=== PATIENT | female | born 1945 | race Caucasian/White ===

== ENCOUNTER 2023-04-06 14:24 | Inpatient (IN) | payer MEDICARE, OTHER, SELFPAY ==
[2023-04-06] VITALS (8 sets, daily range): BP systolic 104–154; BP diastolic 56–98; BMI 21.5
--- NOTE | 2023-04-06 11:41 | ED.GENMED ---
History of Present Illness
General
Chief Complaint: Change in Mental Status
Time Seen by Provider: 04/06/23 11:36
Travel History
Have you had any contact with someone who has COVID-19?: No
Do you have any symptoms of coronavirus? Fever > 100 degrees, chills, cough, shortness of breath, sore throat, loss of taste or smell, muscle aches, or headache?: No
History of Present Illness
History of Present Illness:
77-year-old female with history of mild dementia presents the emergency department from home for evaluation of mental status change and weakness for the past 2 to 3 days. Has a history of UTI and daughter is concerned for this. Typically she is
appropriately conversant and more interactive. She has been coughing for the past week. History is otherwise limited due to the patient's mental status
Review of Systems
Review of Systems
Allergies reviewed?: Yes
All Other Systems: ROS reviewed and negative except as documented in HPI and ROS
Phy Exam
Physical Exam
Physical Exam:
GEN: Well appearing, NAD, WDWN
Eyes: PERRLA, EOMs intact, no scleral icterus
HENT: NCAT, oral mucosa moist
Lungs: CTAB, no wheezes, rales, rhonchi, normal chest wall excursion
Cardiac: RRR, no M/R/G, no peripheral edema. Radial pulses 2+ bilat
Abdomen: S, NT, ND, NABS, no masses or hepatosplenomegaly
Neuro: Alert, globally weak, nonsensical speech, follows commands, no lateralizing deficits
MSK: No gross deformity or ecchymosis. No edema. No digital clubbing
Skin: No rashes, petechiae. Normal color, no pallor or jaundice.
Psych: Calm, cooperative, proper hygiene
Course
Orders/Labs/Results
Orders:
Orders
04/06/23 11:40
Electrocardiogram (*1) Urgent
Reason for Study: Other
Other Reason for Exam: sepsis
EKG- Treatment ONCE
Straight cath- Treatment ONCE
04/06/23 11:41
CR Chest - 2 Views Urgent
Comment:
Reason For Exam: fever, hypoxia
04/06/23 11:51
Acetaminophen [Tylenol/Feverall] 650 mg RECTAL NOW STA
04/06/23 11:56
COVID-19 Antigen Urgent
Source: Nasal Swab
Complete Blood Count/With Diff Urgent
Comprehensive Metabolic Panel Urgent
Ferritin Routine
Comment: ADD ON
Iron Urgent
Comment: ADD ON
Lactic Acid Q4H
Comment: CANCEL 2nd LACTIC ACID IF 1st LACTIC ACID IS LESS THAN 2
Manual Differential Urgent
Prothrombin Time Urgent
Total Iron Binding Urgent
Comment: ADD ON
Vitamin B12 Routine
Comment: ADD ON
Blood Culture Q30M
GABBY Source: Blood/Venous
Specimen Description:
Influenza A+B Rapid Molecular Urgent
GABBY Source: Nasal Swab
Specimen Description:
04/06/23 11:59
Urinalysis Reflex To Culture Urgent
Date Specimen was Collected: 04/06/23
Time Specimen was Collected: 11:58
Urine Microscopic Reflex Cult Urgent
Urine Culture Urgent
GABBY Source: U
Specimen Description:
Date Specimen was Collected: 04/06/23
Time Specimen was Collected: 11:58
04/06/23 13:01
Azithromycin 500 mg/250 ml [Zithromax Infusion] 500 mg in 250 ml IV NOW
CefTRIAXone [Rocephin] 1,000 mg IV NOW STA
04/06/23 13:41
Blood Culture Q30M
GABBY Source: Blood/Venous
Specimen Description:
04/06/23 13:49
Admit/Transfer Patient As Directed
Co-Sign Provider:
Level of Care: Inpatient admission
Assign to:: Medical/Surgical
Physician / Group: cynthia bueno
Diagnosis: hypoxic resp insuff 2/2 RLL pna
Reason for Hospitalization: hypoxic resp insuff 2/2 RLL pna
Expected length of stay greater than two midnights?: Yes
ELOS- Estimated Length of Stay in days: 3
I certify the patient meets the requirements for IP care: Yes
04/06/23 13:50
Code Status As Directed
Resuscitation Status: Do not resuscitate
Reached after discussion with pt or family/Healthcare POA: Yes
Based on pt advanced directive or healthcare POA form: Yes
Decision communicated with: per daughter allyson poa
DNR Bracelet Application ONCE
04/06/23 14:02
Add On- LAB Routine
Tests Added?: iron,tibc,ferritin,b12
04/06/23 15:45
Lactic Acid Q4H
Comment: CANCEL 2nd LACTIC ACID IF 1st LACTIC ACID IS LESS THAN 2
Abnormal Lab Results
04/06/23 04/06/23
11:56 11:59
WBC 13.0 H 10^3/uL
(4.8-10.8)
RBC 3.27 L 10^6/uL
(4.20-5.40)
Hgb 10.7 L g/dL
(12.0-16.0)
Hct 32.1 L %
(37.0-47.0)
MCH 32.7 H pg
(27.0-31.0)
Abs Immat Gran (auto) 0.1 H 10^3/uL
(0-0.05)
Absolute Neuts (auto) 11.9 H 10^3/uL
(1.4-6.5)
Absolute Lymphs (auto) 0.4 L 10^3/uL
(1.2-3.4)
Absolute Monos (auto) 0.7 H 10^3/uL
(0.1-0.6)
Immature Gran % 0.7 H %
(0-0.5)
Neutrophils % 90.8 H %
(42.2-75.2)
Lymphocytes % 2.9 L %
(20.5-51.1)
Abs Neuts (Manual) 11.4 H 10^3/uL
(1.4-6.5)
Band Neutrophils 16 H %
(0-3)
Lymphocytes (Manual) 5 L %
(20-51)
PT 16.9 H Sec
(11.4-14.6)
Sodium 134 L mmol/L
(135-145)
BUN 41 H mg/dl
(7-17)
Glucose 101 H mg/dl
(70-99)
Iron 27 L ug/dl
(37-170)
TIBC 214 L ug/dl
(265-497)
% Saturation 12 L %
(20-50)
Urine Ketones Trace A
(Negative)
Ur Occult Blood Reflex 1+ A
(Negative)
Urine Bilirubin 1+ A
(Negative)
Leukocyte Esterase Rfl Trace A
(Negative)
Urine Bacteria (Reflex) Many A
(Negative)
Urine Albumin (Reflex) 1+ A
(Neg - Trace)
04/06/23 11:56
04/06/23 11:56
Vital Signs
Initial and Last Documented VS:
Initial Vital Signs
Temp Pulse Resp Pulse Ox
99.3 F 72 20 89
04/06/23 11:23 04/06/23 11:23 04/06/23 11:23 04/06/23 11:23
Last Documented Vital Signs
Temp Pulse Resp Pulse Ox
99.9 F 72 20 89
04/06/23 13:49 04/06/23 11:23 04/06/23 11:23 04/06/23 11:23
MDM/Problems Addressed
MDM/Problems Addressed:
Chest x-ray independently interpreted by me shows right lower lobe pneumonia. This is likely patient source of sepsis. Lactic acid is normal and she is hemodynamically stable. She is noted to be mildly hypoxic on room air requiring supplemental
oxygen. Given this coupled with his advanced age and dementia I recommend we admit her for IV antibiotics at this juncture
*Critical Care Note
Total Time (30-74mins, 75-104mins- exclusive of procedures): Not Applicable
ED Attending Note
-
Portions of this chart may have been created with voice recognition software.� Occasional wrong word or��sound alike� substitutions may have occurred due to the inherent limitations of voice recognition software.
Discharge Plan
Departure
Patient Disposition: Admit
Date of Disposition: 04/06/23
Time of Disposition: 13:06
Admit to: Med/Surg
Presentation/result/management discussed w/ accepting MD/DO: Hospitalist
Discharge Problem:
Right lower lobe pneumonia, Acute respiratory insufficiency
Interventions
Interventions:
*Risk Screen - Suicide Last Done: 04/06/23 11:23
*General Assessment Last Done: 04/06/23 11:23
*Neglect/Abuse Screening Last Done: 04/06/23 11:23
*ED COVID-19 Vaccine History Last Done: 04/06/23 13:00
ED- Pulmonary Assessment Last Done: 04/06/23 13:00
ED- Neurological Assessment Last Done: 04/06/23 13:00
[2023-04-06] MEDS: TYLENOL/FEVERALL 650 MG RECTAL (11:57)
[2023-04-06 12:24] LABS: % Basophils 0.2 % (0-2); % Immature Granulocytes 0.7 % (0-0.5); % Lymphocytes 2.9 % (20.5-51.1); % Monocytes 5.4 % (1.7-9.3); % Neutrophils 90.8 % (42.2-75.2); Absolute Immature Granulocytes 0.1 10^3/uL (0-0.05); Absolute Lymphocytes 0.4 10^3/uL (1.2-3.4); Absolute Monocytes 0.7 10^3/uL (0.1-0.6); Absolute Neutrophils 11.9 10^3/uL (1.4-6.5); Hematocrit 32.1 % (37.0-47.0); Hemoglobin 10.7 g/dL (12.0-16.0); Mean Corp Hgb Conc. 33.3 g/dL (33.0-37.0); Mean Corpuscular Hgb 32.7 pg (27.0-31.0); Mean Corpuscular Volume 98.2 fL (81.0-99.0); Mean Platelet Volume 10.3 fL (7.4-10.4); Nucleated Red Blood Cells % 0 %; Platelet Count 213 10^3/uL (130-400); Red Blood Cell Count 3.27 10^6/uL (4.20-5.40); Red Cell Dist. Width 12.4 % (11.5-14.5)
[2023-04-06 12:36] LABS: ALT (SGPT) 21 U/L (0-35); AST (SGOT) 27 U/L (14-36); Albumin 3.8 g/dl (3.5-5.0); Alkaline Phosphatase 57 U/L (38-126); Blood Urea Nitrogen 41 mg/dl (7-17); Calcium 9.5 mg/dl (8.4-10.2); Carbon Dioxide 29 mmol/L (22-30); Chloride 102 mmol/L (98-107); Estimated Creatinine Clearance 43 ml/min; Glucose 101 mg/dl (70-99); Potassium 3.9 mmol/L (3.5-5.1); Sodium 134 mmol/L (135-145); Total Protein 6.4 g/dl (6.3-8.2); eGFR > 60.00
[2023-04-06 12:39] LABS: Lactic Acid 1.2 mmol/L (0.7-2.0)
[2023-04-06 12:48] LABS: COVID-19 Antigen Negative (Negative)
[2023-04-06 12:58] LABS: INR 1.37; PT 16.9 Sec (11.4-14.6)
[2023-04-06 13:03] LABS: Urine Albumin 1+ (Neg - Trace); Urine Bilirubin 1+ (Negative); Urine Character Clear (Clear); Urine Color Amber; Urine Glucose Negative (Negative); Urine Ketone Trace (Negative); Urine Leukocyte Trace (Negative); Urine Nitrite Negative (Negative); Urine Occult Blood 1+ (Negative); Urine Specific Gravity 1.025 (<1.030); Urine Urobilinogen 1+ (Neg - 1+)
--- NOTE | 2023-04-06 13:17 | HPS.HSE ---
Family Physician
<DAMION Wilkins - Last Filed: 04/06/23 14:18>
-
Family Physician: PHYSICIAN PRIVATE
Chief Complaint
<DAMION Wilkins - Last Filed: 04/06/23 14:18>
-
Lethargy, fall, cough
History of Present Illness
77-year-old female, from home where she lives with her daughter Yue who states yesterday her mother was very lethargic, barely ate and was sleeping all day. She did notice a nonproductive cough and some chills. She also states her mother did fall
but did not sustain any injury. The patient is oriented to name and daughter's name. She denies current headache, chest pain, abdominal pain, nausea, vomiting, diarrhea, urinary symptoms.
She has PMH Lewy body dementia, HTN, HLD, asthma, anxiety, left-sided breast cancer with left lumpectomy/radiation 2013
Medical History
<DAMION Wilkins - Last Filed: 04/06/23 14:18>
Past Medical History
Past Medical History: Reports Other
Additional Past Medical History:
Lewy body dementia
HTN
HLD
asthma
anxiety
left-sided breast cancer with left lumpectomy/radiation 2013
Past Surgical History: Reports Other
Additional Past Surgical History:
left-sided breast cancer with left lumpectomy/radiation 2013
Arthroscopy right knee
Hysterectomy
Social History
Tobacco: Former Smoker (Quit approximately 5 years ago according to daughter did vape for 3 years)
Alcohol: None
Drug: None
Personal: (May 2022)
Living: With Family (Daughter Yue HEBERT)
Employment: Retired
Family History
Family History: Other (Mother history of dementia, father history CHF, sister history of Alzheimer's )
Allergies / Home Medications
Allergies reflects when Allergies were last updated in [facility].
Home Medications with original date entered in [facility]
Allergy/Medication List:
Allergies
Allergy/AdvReac Type Severity Reaction Status Date / Time
No Known Allergies Allergy Verified 04/06/23 11:55
Home Medications
amlodipine 2.5 mg tablet 2.5 mg PO QPM 04/06/23
calcium carbonate 500 mg calcium (1,250 mg) tablet 500 mg PO BID 04/06/23
cyanocobalamin (vitamin B-12) 1,000 mcg tablet 1,000 mcg PO DAILY 04/06/23
duloxetine 30 mg capsule,delayed release (Cymbalta) 120 mg PO DAILY 04/06/23
omeprazole 20 mg tablet,delayed release 20 mg PO BID 04/06/23
potassium chloride 20 mEq tablet,extended release 20 meq PO DAILY 04/06/23
pravastatin 40 mg tablet 40 mg PO DAILY 04/06/23
rivastigmine tartrate 3 mg capsule 3 mg PO QPM 04/06/23
rivastigmine tartrate 4.5 mg capsule 4.5 mg PO DAILY 04/06/23
trazodone 50 mg tablet 50 mg PO HS 04/06/23
valsartan 160 mg tablet 160 mg PO DAILY 04/06/23
Review of Systems
<DAMION Wilkins - Last Filed: 04/06/23 14:18>
-
History Source: Patient and Family (Daughter Yue)
A 12 point ROS was completed and negative except as noted: Yes
Constitutional: Reports Fatigue and Chills
EENT: Denies Sore Throat or Runny Nose
Respiratory: Reports Cough (Nonproductive) and Trouble Breathing
Cardiac: Denies Chest Pain, Diaphoresis, Palpitations or Syncope
Abdomen/GI: Denies Abdominal Pain, Nausea, Vomiting, Diarrhea, Constipated, Bloody Stools or Black Stools
: Denies Dysuria, Frequency, Flank Pain, Incontinence or Difficulty Voiding
Musculoskeletal: Denies Joint Pain or Edema
Skin: Denies Itching or Rash
Neurological: Reports Weakness (Generalized); Denies Dizzy or Headache
Endocrine: Reports No Symptoms
Hematologic/Lymphatic: Reports No Symptoms
Psych: Reports Calm
Physical Exam
<DAMION Wilkins - Last Filed: 04/06/23 14:18>
Vital Signs
Vital Signs
Temp Pulse Resp Pulse Ox
99.3 F 72 20 89
04/06/23 11:23 04/06/23 11:23 04/06/23 11:23 04/06/23 11:23
Physical Exam
General: Comfortable, Conversant and Chills; No Pain or Fever
HEENT: NormoCephalic, Anicteric, Moist mucous membranes, PERRLA and Oxygen (2 L nasal cannula)
Respiratory: Rhonchi (Right lower lung base)
Cardiac: S1/S2 and Regular Rhythm; No Murmur, Rub, Gallop or Peripheral Edema
Breast: Deferred by me
GI: Soft, Non Tender, Non Distended, Normal Bowel Sounds and No Hepatosplenomegaly
Rectal: Deferred by Provider
Genito-urinary: Deferred by me
Musculoskeletal: No Clubbing, No Cyanosis and No Edema
Skin: Warm and Dry; No Rash
Neuro: Awake, Alert, Oriented (To name and daughter) and No Sensory Deficits; No Facial Droop or Tremors
Psych: Calm
Laboratory Results
<DAMION Wilkins - Last Filed: 04/06/23 14:18>
-
04/06/23 11:56
04/06/23 11:56
Laboratory Results
PT 16.9 Sec (11.4-14.6) H 04/06/23 11:56
INR 1.37 04/06/23 11:56
Lactic Acid 1.2 mmol/L (0.7-2.0) 04/06/23 11:56
Total Bilirubin 1.0 mg/dl (0.2-1.3) 04/06/23 11:56
AST 27 U/L (14-36) 04/06/23 11:56
ALT 21 U/L (0-35) 04/06/23 11:56
Alkaline Phosphatase 57 U/L (38-126) 04/06/23 11:56
Data Reviewed
<DAMION Wilkins - Last Filed: 04/06/23 14:18>
-
Diagnostic Radiology: Report Reviewed by me
Lab Data: Labs Reviewed by me
Impression/Plan
<DAMION Wilkins - Last Filed: 04/06/23 14:18>
-
Impression/plan:
Admit to MedSurg
#Acute hypoxic resp insuff 2/2 right lower lobe pneumonia
89% RA, continue supplemental O2
WBC 13, 99.3 F
COVID/flu-negative
-Blood cultures x 2, check lactic acid
-Sputum culture
-Nebs as needed
-Incentive spirometry
-IV Rocephin IV Zithromax, IV Flagyl to cover possible aspiration pneumonia
Speech swallow eval
-Follow CBC, BMP
-PT/OT/case management
CXR: Right basilar opacification most likely right lower lobe pneumonia
# Lewy body dementia Hx
-Fall precaution
-Continue rivastigmine
#HTN-benign
BP stable
-Continue amlodipine 2.5 mg daily, valsartan 160 mg daily
#HLD
-Continue pravastatin 40 mg daily
#Asthma-no acute exacerbation
#Anxiety
-Continue Cymbalta 120 mg daily
#Insomnia
Continue trazodone 50 mg at bedtime
DVT prophylaxis
Subcu Lovenox
DNR per daughter Yue HEBERT
<James Ventura MD - Last Filed: 04/06/23 15:05>
-
I saw and examined the patient.
The MICROWAVE REMOTE SENSING SCIENTIST or PA's note was reviewed and I agree with the note.
Comment: CVS: S1-S2 normal
Chest: Rales at right base
Abdomen: Soft, NT / Bowel sounds present
Extremities: No edema,
FITNESS AND WELLNESS DIRECTOR:, Dementia, nonfocal exam
# Acute hypoxic respiratory insufficiency secondary to right lower lobe pneumonia
Blood cultures have been ordered
Sputum culture
Incentive spirometry
Continue Zithromax Flagyl and Rocephin
Speech and swallow evaluation high risk for aspiration given Lewy body dementia
# Hypertension-continue Norvasc, valsartan
# Hyperlipidemia-continue pravastatin
# Asthma-stable
# Anxiety Cymbalta 120 mg daily
Insomnia-continue trazodone 50 mg at nighttime
# Lewy body dementia
# DVT prophylaxis on Lovenox
# DNR per discussion with the daughter at bedside
D/W DAUGHTER AT BED SIDE
Impression/plan:
Admit to MedSurg
#Acute hypoxic resp insuff 2/2 right lower lobe pneumonia
89% RA, continue supplemental O2
WBC 13, 99.3 F
COVID/flu-negative
-Blood cultures x 2, check lactic acid
-Sputum culture
-Nebs as needed
-Incentive spirometry
-IV Rocephin IV Zithromax, IV Flagyl to cover possible aspiration pneumonia
Speech swallow eval
-Follow CBC, BMP
-PT/OT/case management
CXR: Right basilar opacification most likely right lower lobe pneumonia
# Lewy body dementia Hx
-Fall precaution
-Continue rivastigmine
#HTN-benign
BP stable
-Continue amlodipine 2.5 mg daily, valsartan 160 mg daily
#HLD
-Continue pravastatin 40 mg daily
#Asthma-no acute exacerbation
#Anxiety
-Continue Cymbalta 120 mg daily
#Insomnia
Continue trazodone 50 mg at bedtime
DVT prophylaxis
Subcu Lovenox
DNR per daughter Yue HEBERT
[2023-04-06 13:21] LABS: Absolute Neutrophils -Man Diff 11.4 10^3/uL (1.4-6.5); Band Neutrophils 16 % (0-3); Lymphocytes 5 % (20-51); Metamyelocytes 2 % (-); Monocytes 4 % (2-9); Myelocytes 1 % (-); Segmented Neutrophils 72 % (42-75)
[2023-04-06 13:22] LABS: Anisocytosis Slight; Hypochromasia 1+; Normal RBC Morphology No; Ovalocytes 1+; Platelets Checked Yes; Total Cells Counted 100
[2023-04-06 13:23] LABS: Urine Mucus Many
[2023-04-06 13:25] LABS: Urine Bacteria Many (Negative); Urine Red Blood Cell 0-2 /HPF (0-2); Urine White Cell 0-2 /HPF (0-5)
[2023-04-06] MEDS: ZITHROMAX INFUSION 250 IV (13:42)
[2023-04-06] MEDS: ROCEPHIN 1000 MG IV (13:42)
[2023-04-06 14:48] LABS: Iron 27 ug/dl (37-170)
[2023-04-06 14:57] LABS: Percent Saturation 12 % (20-50); Total Iron Binding Capacity 214 ug/dl (265-497)
[2023-04-06 15:47] LABS: Vitamin B12 994 pg/ml (239-931)
[2023-04-06] MEDS: FLAGYL 500 MG 100 IV ×2 (16:55→23:12)
[2023-04-06] MEDS: EXELON 3 MG PO (17:15)
[2023-04-06] MEDS: NORVASC 2.5 MG PO (17:15)
[2023-04-06] MEDS: LOVENOX 40 MG SC (17:16)
--- NOTE | 2023-04-06 17:25 | PTCARENOTE ---
pt presents from ED via stretcher. pt is AAO*2, Disoriented to time. Pt is confused and restless. bed alarm in. pt is oriented to the room. call heart within the reach. daughter at the bedside confirmed. pt's mentation at the baseline. will continue
plan of care.
[2023-04-06] MEDS: DUONEB INH (17:53)
[2023-04-06] MEDS: DUONEB 3 ML INH (19:13)
[2023-04-06] MEDS: OSCAL CAL 500 500 MG PO (21:08)
[2023-04-06] MEDS: PROTONIX 40 MG PO (21:08)
[2023-04-06] MEDS: DESYREL 50 MG PO (21:09)
[2023-04-07 07:25] VITALS: BP 115/68
[2023-04-07] MEDS: DUONEB 3 ML INH ×4 (07:39→19:20)
[2023-04-07 09:04] LABS: % Basophils 0.3 % (0-2); % Eosinophils 0.2 % (0-6); % Immature Granulocytes 0.7 % (0-0.5); % Lymphocytes 5.3 % (20.5-51.1); % Monocytes 6.8 % (1.7-9.3); % Neutrophils 86.7 % (42.2-75.2); Absolute Immature Granulocytes 0.1 10^3/uL (0-0.05); Absolute Lymphocytes 0.6 10^3/uL (1.2-3.4); Absolute Monocytes 0.8 10^3/uL (0.1-0.6); Absolute Neutrophils 9.8 10^3/uL (1.4-6.5); Hematocrit 30.4 % (37.0-47.0); Hemoglobin 10.3 g/dL (12.0-16.0); Mean Corp Hgb Conc. 33.9 g/dL (33.0-37.0); Mean Corpuscular Hgb 32.3 pg (27.0-31.0); Mean Corpuscular Volume 95.3 fL (81.0-99.0); Mean Platelet Volume 10.2 fL (7.4-10.4); Nucleated Red Blood Cells % 0 %; Platelet Count 218 10^3/uL (130-400); Red Blood Cell Count 3.19 10^6/uL (4.20-5.40); Red Cell Dist. Width 12.3 % (11.5-14.5); White Blood Cell Count 11.3 10^3/uL (4.8-10.8)
--- NOTE | 2023-04-07 09:04 | PTOTSP ---
Dysphagia Evaluation
Patient admitted with RLL PNA. While she demonstrated no significant signs of oral/pharyngeal dysphagia or aspiration with clinical bedside swallowing evaluation, she has chronic risk factors (i.e., Lewy Body Dementia, radiation in 2014 for breast
cancer) for dysphagia. Consider video swallow study to rule out any silent aspiration.
Recommend:
1. Regular, Thin Liquids
2. Medications as best tolerated
3. Video swallow study to rule out silent aspiration
4. Oral care 3-5x daily
5. General aspiration precautions
[2023-04-07] MEDS: FLAGYL 500 MG 100 IV ×3 (09:39→23:49)
[2023-04-07] MEDS: CYMBALTA DELAYED RELEASE 120 MG PO (09:40)
[2023-04-07] MEDS: EXELON 4.5 MG PO (09:40)
[2023-04-07] MEDS: DIOVAN 160 MG PO (09:41)
[2023-04-07] MEDS: OSCAL CAL 500 500 MG PO ×2 (09:41→21:21)
[2023-04-07] MEDS: PROTONIX 40 MG PO ×2 (09:41→21:20)
[2023-04-07] MEDS: KCL 20 MEQ PO ×2 (09:41→17:05)
[2023-04-07] MEDS: PRAVACHOL 40 MG PO (09:41)
[2023-04-07 09:46] LABS: Blood Urea Nitrogen 39 mg/dl (7-17); Calcium 8.8 mg/dl (8.4-10.2); Carbon Dioxide 28 mmol/L (22-30); Chloride 102 mmol/L (98-107); Estimated Creatinine Clearance 41 ml/min; Glucose 114 mg/dl (70-99); Potassium 3.3 mmol/L (3.5-5.1); Sodium 134 mmol/L (135-145); eGFR > 60.00
[2023-04-07] MEDS: VITAMIN B-12 1000 MCG PO (10:27)
[2023-04-07 10:35] VITALS: BP 128/78; BP 137/82; PULSE 91; O2SAT 93
[2023-04-07 10:45] VITALS: BP 128/78; BP 137/82; PULSE 91; O2SAT 93
--- NOTE | 2023-04-07 15:11 | W.PN.HOSP.TC ---
Today's Communication/Plan
-
VSE
Replace K
PT OT to see tomorrow and see if pt needs SNF
If not pt can go home as long as improves
Assessment / Plan
Assessment / Plan
CVS: S1-S2 normal
Chest: few Rales at right base
Abdomen: Soft, NT / Bowel sounds present
Extremities: No edema,
CHEMICAL PROCESS PROJECT ENGINEER:, Dementia, nonfocal exam
# Acute hypoxic respiratory insufficiency secondary to right lower lobe pneumonia
Blood cultures neg
Sputum culture if possible
Incentive spirometry
Continue Zithromax Flagyl and Rocephin
Speech and swallow evaluation noted
VSE ordered
# Hypertension-continue Norvasc, valsartan
#Mild Hypokalemia- Potassium
On Chronic potassium suppliment also
# Hyperlipidemia-continue pravastatin
# Asthma-stable
# Anxiety Cymbalta 120 mg daily
Insomnia-continue trazodone 50 mg at nighttime
# Lewy body dementia
# DVT prophylaxis on Lovenox
# DNR per discussion with the daughter at bedside
D/W Daughter at bed side
Anticipated Discharge: Within 24 hours
Subjective/Interval History
-
Date of Service: April 07, 2023
Objective Data
-
Labs:
Laboratory Results
04/07/23
08:03
WBC 11.3 H
Hgb 10.3 L
Hct 30.4 L
Plt Count 218
Sodium 134 L
Potassium 3.3 L
Chloride 102
Carbon Dioxide 28
BUN 39 H
Creatinine 0.8
Glucose 114 H
Calcium 8.8
Vital Signs:
Vital Signs
Temp Pulse Resp BP Pulse Ox
98.0 F 78 16 115/68 98
04/07/23 07:25 04/07/23 11:05 04/07/23 11:05 04/07/23 09:41 04/07/23 11:31
I&O
04/06/23 04/07/23 04/08/23
06:59 06:59 06:59
Intake Total 760 / 760
Output Total 125 / 125
Balance 635 / 635
[2023-04-07] MEDS: ROCEPHIN 1000 MG IV (15:17)
[2023-04-07] MEDS: STERILE WATER FOR INJECTION 10 ML IV (15:17)
[2023-04-07] MEDS: ZITHROMAX INFUSION 250 IV (15:22)
[2023-04-07 15:27] VITALS: BP 109/72
--- NOTE | 2023-04-07 15:41 | CM ---
employee development manager reviewed patient's chart and met with patient and patient lives with her daughter since her spouse recently , patient is independent with adls and ambulation, no dme, patient does not drive, patient resides on 1st floor of
daughter's home. Patient has a prescription plan and patient uses [facility] pharmacy.
Patient was seen by physical therapy and they are recommending skilled placement, options reviewed with brian and brian has selected [facility], referral sent to [facility] skilled.
PCP: Unknown
Plan; Skilled placement at [facility], referral sent to [facility].
[2023-04-07] MEDS: LOVENOX 40 MG SC (17:04)
[2023-04-07] MEDS: NORVASC 2.5 MG PO (17:04)
[2023-04-07] MEDS: EXELON 3 MG PO (17:05)
[2023-04-07] MEDS: COLACE 100 MG PO (21:20)
[2023-04-07] MEDS: DESYREL 50 MG PO (21:20)
[2023-04-07 23:38] VITALS: BP 136/81
[2023-04-08 06:00] VITALS: BMI 21.6
[2023-04-08] MEDS: DUONEB 3 ML INH ×2 (07:29→12:50)
[2023-04-08] MEDS: EXELON 4.5 MG PO (08:21)
[2023-04-08] MEDS: FLAGYL 500 MG 100 IV ×2 (08:21→16:10)
[2023-04-08] MEDS: PROTONIX 40 MG PO ×2 (08:22→21:26)
[2023-04-08] MEDS: CYMBALTA DELAYED RELEASE 120 MG PO (08:22)
[2023-04-08] MEDS: COLACE 100 MG PO ×2 (08:24→21:26)
[2023-04-08] MEDS: OSCAL CAL 500 500 MG PO ×2 (08:24→21:26)
[2023-04-08] MEDS: KCL 20 MEQ PO (08:24)
[2023-04-08] MEDS: PRAVACHOL 40 MG PO (08:24)
[2023-04-08] MEDS: VITAMIN B-12 1000 MCG PO (08:24)
[2023-04-08] MEDS: FEOSOL 325 MG PO (08:24)
[2023-04-08] MEDS: DIOVAN 160 MG PO (08:25)
[2023-04-08 08:30] LABS: % Basophils 0.2 % (0-2); % Eosinophils 0.3 % (0-6); % Immature Granulocytes 0.7 % (0-0.5); % Lymphocytes 3.8 % (20.5-51.1); Absolute Immature Granulocytes 0.1 10^3/uL (0-0.05); Absolute Lymphocytes 0.4 10^3/uL (1.2-3.4); Absolute Monocytes 0.6 10^3/uL (0.1-0.6); Absolute Neutrophils 8.6 10^3/uL (1.4-6.5); Hematocrit 30.1 % (37.0-47.0); Hemoglobin 10.1 g/dL (12.0-16.0); Mean Corp Hgb Conc. 33.6 g/dL (33.0-37.0); Mean Corpuscular Hgb 32.2 pg (27.0-31.0); Mean Corpuscular Volume 95.9 fL (81.0-99.0); Mean Platelet Volume 10.1 fL (7.4-10.4); Nucleated Red Blood Cells % 0 %; Platelet Count 246 10^3/uL (130-400); Red Blood Cell Count 3.14 10^6/uL (4.20-5.40); Red Cell Dist. Width 12.3 % (11.5-14.5); White Blood Cell Count 9.7 10^3/uL (4.8-10.8)
[2023-04-08 09:06] LABS: Blood Urea Nitrogen 28 mg/dl (7-17); Calcium 8.8 mg/dl (8.4-10.2); Carbon Dioxide 27 mmol/L (22-30); Chloride 105 mmol/L (98-107); Estimated Creatinine Clearance 55 ml/min; Glucose 107 mg/dl (70-99); Potassium 3.7 mmol/L (3.5-5.1); Sodium 137 mmol/L (135-145); eGFR > 60.00
[2023-04-08] MEDS: ZITHROMAX INFUSION 250 IV (13:34)
[2023-04-08] MEDS: STERILE WATER FOR INJECTION 10 ML IV (13:34)
[2023-04-08] MEDS: ROCEPHIN 1000 MG IV (13:34)
--- NOTE | 2023-04-08 14:37 | PTOTSP ---
ST Video Fluoroscopic Swallow Study
Pt presents with mild to moderate oropharyngeal dysphagia characterized by prolonged mastication and bolus formation, delayed swallow initiations as illustrated by premature spillage to the inferior of the epiglottis with solids and into the
laryngeal vestibule and pyriform sinuses with thin liquids, laryngeal penetration with thin liquids via tsp and open cup without ejection as well as trace silent aspiration with thin liquids via straw, and mild to moderate pharyngeal residue
(liquids>solids) that is reduced in quantity with a subsequent dry swallow. Pt's cued cough is sufficient at ejecting penetrated material; however, pt is rarely aware or responsive to penetrated material/wet vocal quality when it occurs.
Recommendations:
1. Downgrade diet to Soft Bite-Sized Solids and Mildly Thick ([place] Thick) Liquids via open cup only
2. Meds whole in puree
3. Aspiration precautions - HOB fully upright; no straws; single sips; no talking while eating/drinking
4. GERD precautions
5. ACUTE COORDINATOR to follow
--- NOTE | 2023-04-08 15:16 | CM ---
CM following re: d/c planning
Chart reviewed
Pt will be medically stable for d/c tomorrow 04/09/23
CM called and spoke with Yane at [facility] and she has offered a bed to patient
IMM reviewed and filed on patient chart
CM to complete transport forms and communicate the time once confirmed
PLAN; d/c to [facility]
Report: [phone] ask for RN supervisor propellant charge loading
[2023-04-08 15:41] VITALS: BP 159/92; PULSE 78
[2023-04-08 15:45] VITALS: BP 161/93
--- NOTE | 2023-04-08 15:48 | W.PN.HOSP.TC ---
Today's Communication/Plan
-
CT head
D/C Zithromax
Assessment / Plan
Assessment / Plan
CVS: S1-S2 normal
Chest: few Rales at right base
Abdomen: Soft, NT / Bowel sounds present
Extremities: No edema,
HELICOPTER DISPATCHER:, Dementia, nonfocal exam
#Fall . Pt got out of bed and lost balance. Bumped head on the door and slid down
Examination unremarkable
Because of head impact we will do a CT scan.
# Acute hypoxic respiratory insufficiency secondary to right lower lobe pneumonia
Blood cultures neg
Aspiration related pneumonia
Speech evaluation ordered
Stop Zithromax and continue Flagyl and Rocephin
Dysphagia diet ordered
# Hypertension-continue Norvasc, valsartan
#Mild Hypokalemia- Potassium
On Chronic potassium supplement also
# Hyperlipidemia-continue pravastatin
# Asthma-stable
# Anxiety Cymbalta 120 mg daily
Insomnia-continue trazodone 50 mg at nighttime
# Lewy body dementia
# DVT prophylaxis on Lovenox
# DNR per discussion with the daughter at bedside
D/W Daughter at bed side
Discussed with nursing
Discussed with case management
Anticipated Discharge: Within 24 hours
Subjective/Interval History
-
Date of Service: April 08, 2023
Objective Data
-
Labs:
Laboratory Results
04/08/23
07:37
WBC 9.7
Hgb 10.1 L
Hct 30.1 L
Plt Count 246
Sodium 137
Potassium 3.7
Chloride 105
Carbon Dioxide 27
BUN 28 H
Creatinine 0.6
Glucose 107 H
Calcium 8.8
Vital Signs:
Vital Signs
Temp Pulse Resp BP Pulse Ox
97.1 F 68 16 136/81 92
04/08/23 07:56 04/08/23 07:56 04/08/23 12:52 04/07/23 23:38 04/08/23 14:06
I&O
04/07/23 04/08/23 04/09/23
06:59 06:59 06:59
Intake Total 760 / 760 940 / 940
Output Total 125 / 125 200 / 200
Balance 635 / 635 740 / 740
[2023-04-08 15:54] VITALS: BP 161/93
[2023-04-08] MEDS: DUONEB INH (16:01)
[2023-04-08 16:21] VITALS: BP 144/85
--- NOTE | 2023-04-08 16:59 | PTCARENOTE ---
Approx 1540 this afternoon, Angélica Andre was sitting in a chair bedside with chair alarm in place when she stood up. The chair alarm sounded and myself and tech May ran into the room where we witnessed the patient falling from standing. The patient hit
her head against the bathroom door. The pt was placed back in bed with bed alarm. Vitals obtained and assessment of patient done. Dr Ventura was on the floor and came in to the room. BP 161/93 HR 75 O2 95% on RA. put in order for a STAT head CT.
[2023-04-08 17:42] VITALS: BP 156/94
[2023-04-08] MEDS: NORVASC 2.5 MG PO (17:55)
[2023-04-08] MEDS: LOVENOX 40 MG SC (17:55)
[2023-04-08] MEDS: EXELON 3 MG PO (17:55)
--- NOTE | 2023-04-08 18:48 | PTCARENOTE ---
Yue the daughter of the patient [facility] with her.
[2023-04-08] MEDS: DESYREL 50 MG PO (21:26)
[2023-04-08 23:26] VITALS: BP 147/94
[2023-04-09] MEDS: FLAGYL 500 MG 100 IV ×3 (00:14→17:08)
[2023-04-09 06:00] VITALS: BMI 21.5
[2023-04-09 07:16] VITALS: BP 147/99
[2023-04-09] MEDS: EXELON 4.5 MG PO (10:03)
[2023-04-09] MEDS: CYMBALTA DELAYED RELEASE 120 MG PO (10:03)
[2023-04-09] MEDS: FEOSOL 325 MG PO (10:07)
[2023-04-09] MEDS: DIOVAN 160 MG PO (10:08)
[2023-04-09] MEDS: VITAMIN B-12 1000 MCG PO (10:08)
[2023-04-09] MEDS: OSCAL CAL 500 500 MG PO ×2 (10:08→21:40)
[2023-04-09] MEDS: PROTONIX 40 MG PO ×2 (10:08→21:51)
[2023-04-09] MEDS: KCL 20 MEQ PO (10:08)
[2023-04-09] MEDS: COLACE 100 MG PO ×2 (10:09→21:52)
[2023-04-09] MEDS: PRAVACHOL 40 MG PO (10:09)
--- NOTE | 2023-04-09 12:07 | W.PN.HOSP.TC ---
Today's Communication/Plan
-
Discharge is daughter is also agreeable
Assessment / Plan
Assessment / Plan
CVS: S1-S2 normal
Chest: few Rales at right base
Abdomen: Soft, NT / Bowel sounds present
Extremities: No edema,
RN X RAY:, Dementia, nonfocal exam
#Fall 04/09/23
Pt got out of bed and lost balance. Bumped head on the door and slid down
Examination unremarkable
Because of head impact CT scan done - No acute changes
# Acute hypoxic respiratory insufficiency secondary to right lower lobe pneumonia
Blood cultures neg
Aspiration related pneumonia
Speech evaluation ordered
Stop Zithromax and continue Flagyl and Rocephin
Dysphagia diet ordered
# Hypertension-continue Norvasc, valsartan
#Mild Hypokalemia- Potassium
On Chronic potassium supplement also
# Hyperlipidemia-continue pravastatin
# Asthma-stable
# Anxiety Cymbalta 120 mg daily
Insomnia-continue trazodone 50 mg at nighttime
# Lewy body dementia
# DVT prophylaxis on Lovenox
# DNR per discussion with the daughter at bedside
D/W Daughter at bed side
Discussed with nursing
Anticipated Discharge: Within 24 hours
Subjective/Interval History
-
Date of Service: April 09, 2023
Objective Data
-
Vital Signs:
Vital Signs
Temp Pulse Resp BP Pulse Ox
97.6 F 68 18 147/99 91
04/09/23 07:16 04/09/23 10:08 04/09/23 07:16 04/09/23 10:08 04/09/23 07:16
I&O
04/08/23 04/09/23 04/10/23
06:59 06:59 06:59
Intake Total 940 / 940 1000 / 1000
Output Total 200 / 200
Balance 740 / 740 1000 / 1000
[2023-04-09 15:54] VITALS: BP 184/98
[2023-04-09] MEDS: STERILE WATER FOR INJECTION 10 ML IV (16:15)
[2023-04-09] MEDS: ROCEPHIN 1000 MG IV (16:15)
[2023-04-09] MEDS: APRESOLINE 5 MG IV (17:04)
[2023-04-09] MEDS: LOVENOX 40 MG SC (17:08)
[2023-04-09] MEDS: NORVASC 2.5 MG PO (17:09)
[2023-04-09] MEDS: EXELON 3 MG PO (17:09)
[2023-04-09 18:01] VITALS: BP 159/91
[2023-04-09] MEDS: DESYREL 50 MG PO (21:40)
[2023-04-09 23:26] VITALS: BP 152/91
[2023-04-10] MEDS: FLAGYL 500 MG 100 IV ×2 (00:16→09:54)
[2023-04-10 06:00] VITALS: BMI 21.0
[2023-04-10 07:39] VITALS: BP 158/95
[2023-04-10] MEDS: CYMBALTA DELAYED RELEASE 120 MG PO (09:55)
[2023-04-10] MEDS: FEOSOL 325 MG PO (09:56)
[2023-04-10] MEDS: EXELON 4.5 MG PO (09:56)
[2023-04-10] MEDS: DIOVAN 160 MG PO (09:56)
[2023-04-10] MEDS: PROTONIX 40 MG PO ×2 (09:56→19:55)
[2023-04-10] MEDS: VITAMIN B-12 1000 MCG PO (09:57)
[2023-04-10] MEDS: KCL 20 MEQ PO (09:57)
[2023-04-10] MEDS: COLACE 100 MG PO ×2 (09:57→20:06)
[2023-04-10] MEDS: PRAVACHOL 40 MG PO (09:57)
[2023-04-10] MEDS: OSCAL CAL 500 500 MG PO ×2 (09:57→19:55)
[2023-04-10 11:56] VITALS: BP 178/97
[2023-04-10] MEDS: APRESOLINE 5 MG IV (13:19)
[2023-04-10] MEDS: STERILE WATER FOR INJECTION 10 ML IV (13:20)
[2023-04-10] MEDS: ROCEPHIN 1000 MG IV (13:20)
--- NOTE | 2023-04-10 14:05 | W.PN.HOSP.TC ---
Today's Communication/Plan
-
Treat BP
Increase NOrvasc
Discharge later when BP better on higher norvasc.
Dont want to control, BP too tight with Lewy Body Dementia - Autonomic dysfunction
Assessment / Plan
Assessment / Plan
CVS: S1-S2 normal
Chest: CTA
Abdomen: Soft, NT / Bowel sounds present
Extremities: No edema,
FLAME BURNER:, Dementia, nonfocal exam
#Fall 04/09/23
Pt got out of bed and lost balance. Bumped head on the door and slid down
Examination unremarkable
Because of head impact CT scan done - No acute changes
# Acute hypoxic respiratory insufficiency secondary to right lower lobe pneumonia
Blood cultures neg
Aspiration related pneumonia
Speech evaluation ordered
Off Zithromax and Flagyl and Rocephin - Change to Ceftin and flagyl
Dysphagia diet ordered
# Hypertension-continue Norvasc, valsartan
BP slightly high
Will Give a dose of hydralazine.
increase Norvasc to 5 mg
#Mild Hypokalemia- Potassium
On Chronic potassium supplement also
# Hyperlipidemia-continue pravastatin
# Asthma-stable
# Anxiety Cymbalta 120 mg daily
Insomnia-continue trazodone 50 mg at nighttime
# Lewy body dementia
# DVT prophylaxis on Lovenox
# DNR per discussion with the daughter at bedside
D/W Daughter at bed side
She feels patient looks better today
Agreable to discharge if BP better . Med change discussed with daughter
She said Norvasc was decreased in the past
Discussed with nursing
Anticipated Discharge: Today
Subjective/Interval History
-
Date of Service: April 10, 2023
Objective Data
-
Vital Signs:
Vital Signs
Temp Pulse Resp BP Pulse Ox
97.8 F 66 20 178/97 94
02/18/24 11:56 04/10/23 11:56 04/10/23 11:56 04/10/23 11:56 04/10/23 11:56
I&O
04/09/23 04/10/23 04/11/23
06:59 06:59 06:59
Intake Total 1000 / 1000 740 / 740
Balance 1000 / 1000 740 / 740
--- NOTE | 2023-04-10 14:17 | W.DS.TRANS ---
Addendum entered and electronically signed by James Ventura MD 04/10/23 15:52:
Dictation- [id number]
Original Note:
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
-
Discharge Instructions:
Discharge Diagnosis/Procedures Acute hypoxic respiratory insufficiency
secondary to right lower lobe pneumonia,
aspiration pneumonia, dysphagia, hypertension,
mild hypokalemia, hyperlipidemia, asthma,
anxiety, Lewy body dementia, DNR status
Diet Other diet
Additional Diets Soft bite sized solids and mildly thick nectar
thick liquids IDDSI 6
Activity As tolerated,With assistance
Driving Restrictions No driving
Other Services PT,OT
Instructions:
Stand-Alone Forms:
Changes to Home Medications: Yes
Discharge Medications:
DC Medications w/original date entered in [facility]
calcium carbonate 500 mg calcium (1,250 mg) tablet 500 mg PO BID Supplement 04/06/23
cyanocobalamin (vitamin B-12) 1,000 mcg tablet 1,000 mcg PO DAILY Supplement 04/06/23
duloxetine 30 mg capsule,delayed release (Cymbalta) 120 mg PO DAILY Mental Health/Anxiety 04/06/23
omeprazole 20 mg tablet,delayed release 20 mg PO BID Gastrointestinal Issue 04/06/23
potassium chloride 20 mEq tablet,extended release 20 meq PO DAILY Supplement 04/06/23
pravastatin 40 mg tablet 40 mg PO DAILY High Cholesterol 04/06/23
rivastigmine tartrate 3 mg capsule 3 mg PO QPM Lewy body dementia 04/06/23
rivastigmine tartrate 4.5 mg capsule 4.5 mg PO DAILY Lewy body dementia 04/06/23
trazodone 50 mg tablet 50 mg PO HS Sleep 04/06/23
valsartan 160 mg tablet 160 mg PO DAILY Blood Pressure 04/06/23
cefuroxime axetil 500 mg tablet 500 mg PO BID Infection #6 tabs 04/08/23
docusate sodium 100 mg capsule 100 mg PO BID Constipation #0 caps 04/08/23
ferrous sulfate 325 mg (65 mg iron) tablet (FeroSul) 325 mg PO DAILY anemia #0 tabs 04/08/23
ipratropium 0.5 mg-albuterol 3 mg (2.5 mg base)/3 mL nebulization soln 3 ml inhalation R Q4HPRN PRN shortness of breath #0 mL 04/08/23
metronidazole 500 mg tablet 500 mg PO Q8H Infection #9 tabs 04/08/23
amlodipine 5 mg tablet 5 mg PO QPM Blood pressure #30 tabs 04/10/23
Home Medication Changes
new
cefuroxime axetil 500 mg tablet 500 mg PO BID Infection #6 tabs 04/08/23
docusate sodium 100 mg capsule 100 mg PO BID Constipation #0 caps 04/08/23
ferrous sulfate 325 mg (65 mg iron) tablet (FeroSul) 325 mg PO DAILY anemia #0 tabs 04/08/23
ipratropium 0.5 mg-albuterol 3 mg (2.5 mg base)/3 mL nebulization soln 3 ml inhalation R Q4HPRN PRN shortness of breath #0 mL 04/08/23
metronidazole 500 mg tablet 500 mg PO Q8H Infection #9 tabs 04/08/23
dose change norvasc
Pending Results: No
[2023-04-10 15:25] VITALS: BP 160/99
--- NOTE | 2023-04-10 16:24 | CM ---
CM following re: d/c planning
Chart reviewed
Pt is medically stable for d/c
Pt continues with elevated BP however meds adjusted accordingly
Pt will be transferred to [facility] awaiting confirmed p/u time
LOMN & inhouse transport forms provided to
CM has maintained consistent communication with the patient's daughter and will provide transport time to her once confirmed
No additional d/c needs to note
PLAN; d/c to [facility]
Report: [phone] ask for nursing telephone supervisor
[2023-04-10] MEDS: EXELON 3 MG PO (17:38)
[2023-04-10] MEDS: LOVENOX 40 MG SC (17:38)
[2023-04-10] MEDS: NORVASC 5 MG PO (17:38)
[2023-04-10] MEDS: DESYREL 50 MG PO (20:06)
== END 2023-04-10 22:20 | DRG 178 ==
LOC: 4 EAST ACU 14:24
PROVIDERS: Clinical Nurse Specialist Family Health; Physician Assistant; ADMITTING PHYSICIAN Hospitalist; EMERGENCY PHYSICIAN Emergency Medicine
DX: J69.0 Pneumonitis due to inhalation of food and vomit (principal); F02.A18 Dementia in other diseases classified elsewhere, mild, with other behavioral disturbance; F02.A4 Dementia in other diseases classified elsewhere, mild, with anxiety; R13.10 Dysphagia, unspecified; I10 Essential (primary) hypertension; E87.6 Hypokalemia; E78.5 Hyperlipidemia, unspecified; G31.83 Neurocognitive disorder with Lewy bodies; Z66 Do not resuscitate; J45.909 Unspecified asthma, uncomplicated; S09.90XA Unspecified injury of head, initial encounter; Y92.239 Unspecified place in hospital as the place of occurrence of the external cause; W19.XXXA Unspecified fall, initial encounter; R09.02 Hypoxemia
CPT/HCPCS: 70450; 71046; 74230; 80048; 80053; 81003; 81015; 82607; 82728; 83540; 83550; 83605; 85025; 85610; 87040; 87086; 87502; 87811; 92526; 92610; 92611; 93005; 94640; 96374; 96375; 97162; 97166; 97530; 97535; 99285

== ENCOUNTER → 2023-04-18 12:09 | Outpatient (REF) | payer OTHER, MEDICARE, SELFPAY ==
[2023-04-18 13:38] LABS: Blood Urea Nitrogen 39 mg/dl (7-17); Calcium 9.4 mg/dl (8.4-10.2); Carbon Dioxide 30 mmol/L (22-30); Chloride 103 mmol/L (98-107); Glucose 84 mg/dl (70-99); Potassium 4.4 mmol/L (3.5-5.1); Sodium 141 mmol/L (135-145); eGFR > 60.00
== END ==
LOC: OLABP 12:09
PROVIDERS: ATTENDING PHYSICIAN Family Medicine
DX: J18.9 Pneumonia, unspecified organism (principal); R26.2 Difficulty in walking, not elsewhere classified; I10 Essential (primary) hypertension; E87.6 Hypokalemia; J45.909 Unspecified asthma, uncomplicated; F03.90 Unspecified dementia, unspecified severity, without behavioral disturbance, psychotic disturbance, mood disturbance, and anxiety; D64.9 Anemia, unspecified
CPT/HCPCS: 36415; 80048